=== PATIENT | female | born 1965 | race Caucasian/White ===

== ENCOUNTER 2016-07-27 12:57 | Emergency (ER) | payer BC ==
--- NOTE | 2016-07-27 14:38 | EDM.PDOC ---
ED HISTORY OF PRESENT ILLNESS - General Chief Complaint: Respiratory Problem Stated Complaint: ASTHMA ATTACK Time Seen by Provider: 07/27/16 13:10 Source of Information: Reports: Patient History Limitations: Reports: No limitations - History of Present Illness INITIAL COMMENTS - FREE TEXT/NARRATIVE: History of present illness: [] Patient had 3 days of cold symptoms with sore throat and shortness of breath. Review of systems: As per history of present illness and below otherwise all systems reviewed and negative. Past medical history: As per history of present illness and as reviewed below otherwise noncontributory. Surgical history: As per history of present illness and as reviewed below otherwise noncontributory. Social history: No reported history of drug or alcohol abuse. Family history: As per history of present illness and as reviewed below otherwise noncontributory. Physical exam: General: Well developed, well nourished in NAD HEENT: Atraumatic, normocephalic, pupils reactive, negative for conjunctival pallor or scleral icterus, mucous membranes moist, throat clear, neck supple, nontender, trachea midline. Lungs: Clear to auscultation, breath sounds equal bilaterally, chest nontender. Heart: S1S2, regular, negative for clicks, rubs, or JVD. Abdomen: Soft, nondistended, nontender. Negative for masses or hepatosplenomegaly. Negative for costovertebral tenderness. Pelvis: Stable nontender. Genitourinary: Deferred. Rectal: Deferred. Extremities: Atraumatic, negative for cords or calf pain. Neurovascular unremarkable. Neuro: Awake, alert, oriented. Cranial nerves II through XII unremarkable. Cerebellum unremarkable. Motor and sensory unremarkable throughout. Exam nonfocal. Diagnostics: [] Influenza and strep tests are negative Therapeutics: [] Impression: [] Viral syndrome Plan: [] Motrin Tylenol for pain and fevers followup with primary care as needed Definitive disposition and diagnosis as appropriate pending reevaluation and review of above. - Related Data Allergies/ADRs: Allergies Allergy/AdvReac Type Severity Reaction Status Date / Time No Known Allergies Allergy Verified 07/27/16 13:22 Past Medical History Respiratory History: Reports: Asthma Gastrointestinal History: Reports: GERD Musculoskeletal History: Reports: Arthritis Social & Family History - Family History Family Medical History: Noncontributory - Tobacco Use Smoking Status *Q: Never Smoker - Recreational Drug Use Recreational Drug Use: No ED ROS GENERAL - Review of Systems Review Of Systems: See Below (See history of present illness) ED EXAM, GENERAL - Physical Exam Exam: See Below (The history of present illness) Course - Vital Signs Last Recorded V/S: Last Vital Signs Temp 36.9 C 07/27/16 13:23 Pulse 92 07/27/16 13:23 Resp 18 07/27/16 13:23 BP 153/95 H 07/27/16 13:23 Pulse Ox 97 07/27/16 13:23 - Orders/Labs/Meds Orders: Active Orders 24 hr Category Date Time Status CULTURE STREP A CONFIRMATION [RM] Stat Lab 07/27/16 13:35 Results STREP SCRN A RAPID W CULT CONF [RM] Stat Lab 07/27/16 13:35 Results Departure - Departure Time of Disposition: 14:40 Disposition: Home, Self-Care 01 Condition: good Clinical Impression: Viral syndrome Forms: ED Department Discharge Additional Instructions: The following information is given to patients seen in the emergency department who are being discharged to home. This information is to outline your options for follow-up care. We provide all patients seen in our emergency department with a follow-up referral. The need for follow-up, as well as the timing and circumstances, are variable depending upon the specifics of your emergency department visit. If you don't have a primary care physician on staff, we will provide you with a referral. We always advise you to contact your personal physician following an emergency department visit to inform them of the circumstance of the visit and for follow-up with them and/or the need for any referrals to a consulting specialist. The emergency department will also refer you to a specialist when appropriate. This referral assures that you have the opportunity for follow-up care with a specialist. All of these measure are taken in an effort to provide you with optimal care, which includes your follow-up. Under all circumstances we always encourage you to contact your private physician who remains a resource for coordinating your care. When calling for follow-up care, please make the office aware that this follow-up is from your recent emergency room visit. If for any reason you are refused follow-up, please contact the [facility] Emergency Department at and asked to speak to the emergency department charge nurse. [facility] [address] [place] [phone] - My Orders Last 24 Hours: My Active Orders 07/27/16 13:35 CULTURE STREP A CONFIRMATION [RM] Stat STREP SCRN A RAPID W CULT CONF [RM] Stat - Assessment/Plan Last 24 Hours: My Active Orders 07/27/16 13:35 CULTURE STREP A CONFIRMATION [RM] Stat STREP SCRN A RAPID W CULT CONF [RM] Stat
[2016-07-27 15:10] VITALS: BP 142/81
== END 2016-07-27 15:04 | disposition home or self-care (01) ==
LOC: MW.ED 12:57
DX: B34.9 Viral infection, unspecified (principal)
CPT/HCPCS: 87081; 87804; 87880; 99282; 99283

== ENCOUNTER 2017-07-05 09:41 | Emergency (ER) | payer BC ==
[2017-07-05] MEDS ORDERED: Sodium Chloride 0.9% 1,000 ML IV ONE (10:15)
--- NOTE | 2017-07-05 10:23 | EDM.PDOC ---
ED HPI GENERAL MEDICAL PROBLEM - General Chief Complaint: Respiratory Problem Stated Complaint: CHEST PAIN, HARD TO BREATHE Time Seen by Provider: 07/05/17 10:02 Source of Information: Reports: Patient History Limitations: Reports: No Limitations - History of Present Illness INITIAL COMMENTS - FREE TEXT/NARRATIVE: HISTORY AND PHYSICAL: History of present illness: [Patient comes to the emergency room via private vehicle. complaining of left- sided chest pain. Her symptoms began yesterday and were fairly constant through the day but resolved prior to going to bed last night. Pain resumed 0830 this morning. She describes the pain as being an only her left chest, and as a squeezing sensation in her left chest, which she rates as 4-5/10. No radiation of pain into her neck, jaw, shoulder or down her left arm. Pain is not affected by breathing. Pain does not take her breath away. Has not taken any medications for her symptoms. Follows regularly w/ Dr. Marie. Hx of HTN, prediabetes, and asthma. ] Review of systems: As per history of present illness and below otherwise all systems reviewed and negative. Past medical history: As per history of present illness and as reviewed below otherwise noncontributory. Surgical history: As per history of present illness and as reviewed below otherwise noncontributory. Social history: No reported history of drug or alcohol abuse. Family history: As per history of present illness and as reviewed below otherwise noncontributory. Physical exam: HEENT: Atraumatic, normocephalic. Oral mucous membranes are pink and moist. Neck supple no lymphadenopathy. Lungs: Clear to auscultation, breath sounds equal bilaterally. No wheezing crackles or rales. Heart: S1S2, regular rate and rhythm. Abdomen: Soft, nondistended, nontender. Negative for masses guarding or rebound. Pelvis: Stable nontender. Genitourinary: Deferred. Rectal: Deferred. Extremities: Atraumatic, no cyanosis or edema to feet or lower legs. Neurovascular unremarkable. Neuro: Awake, alert, oriented. Motor and sensory unremarkable throughout. Exam nonfocal. Diagnostics: [Chest x-ray, EKG, CBC, CMP, d-dimer, PT/INR, troponin] Therapeutics: [1 L normal saline, Toradol 30 mg IV] Impression: [L sided chest pain] Plan: [EKG shows sinus rhythm and rate of 81. No acute findings. Labs are WNL. Troponin is negative. CXR is clear. Discussed with patient that her symptoms appear to be noncardiac in nature. She is feeling significantly improved and requests discharge to home. Encouraged her to follow-up with Dr. marie in the next couple of days. Strict return precautions are reviewed. She is in agreement with today's plan.] Definitive disposition and diagnosis as appropriate pending reevaluation and review of above. left chest Pain Score (Numeric/FACES): 4 - Related Data Allergies Allergy/AdvReac Type Severity Reaction Status Date / Time fexofenadine [From Adrienne] Allergy Diaphoresis Verified 07/05/17 09:54 Home Meds: Home Meds Budesonide/Formoterol Fumarate [Symbicort 160-4.5 Mcg Inhaler] 10.2 gm INH DAILY PRN 07/05/17 [History] Hydrochlorothiazide 12.5 mg PO DAILY 07/05/17 [History] Lisinopril 2.5 mg PO DAILY 07/05/17 [History] metroNIDAZOLE [Flagyl] 500 mg PO BID 07/05/17 [History] Past Medical History HEENT History: Reports: None Cardiovascular History: Reports: Hypertension Respiratory History: Reports: Asthma Gastrointestinal History: Reports: GERD Genitourinary History: Reports: None 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 Musculoskeletal History: Reports: Arthritis Neurological History: Reports: None Psychiatric History: Reports: None Endocrine/Metabolic History: Reports: None Hematologic History: Reports: None Immunologic History: Reports: None Oncologic (Cancer) History: Reports: None Dermatologic History: Reports: None - Past Surgical History Head Surgeries/Procedures: Reports: None HEENT Surgical History: Reports: None Cardiovascular Surgical History: Reports: None Respiratory Surgical History: Reports: None GI Surgical History: Reports: None Female Surgical History: Reports: None Endocrine Surgical History: Reports: None Neurological Surgical History: Reports: None Musculoskeletal Surgical History: Reports: None Oncologic Surgical History: Reports: None Dermatological Surgical History: Reports: None Social & Family History - Family History Family Medical History: Noncontributory - Tobacco Use Smoking Status *Q: Never Smoker - Caffeine Use Caffeine Use: Reports: None - Recreational Drug Use Recreational Drug Use: No ED ROS GENERAL - Review of Systems Review Of Systems: ROS reveals no pertinent complaints other than HPI. ED EXAM, GENERAL - Physical Exam Exam: See Below Course - Vital Signs Last Recorded V/S: Last Vital Signs Temp 99.3 F 07/05/17 11:52 Pulse 71 07/05/17 11:52 Resp 18 07/05/17 11:52 BP 160/90 H 07/05/17 11:52 Pulse Ox 100 07/05/17 11:52 - Orders/Labs/Meds Orders: Active Orders 24 hr Category Date Time Status EKG Documentation Completion [RC] STAT Care 07/05/17 10:15 Active Labs: Laboratory Tests 07/05/17 07/05/17 07/05/17 Range/Units 10:00 10:00 10:00 WBC 9.65 (4.0-11.0) K/uL RBC 4.75 (4.30-5.90) M/uL Hgb 12.6 (12.0-16.0) g/dL Hct 37.9 (36.0-46.0) % MCV 79.8 L (80.0-98.0) fL MCH 26.5 L (27.0-32.0) pg MCHC 33.2 (31.0-37.0) g/dL RDW Std Deviation 41.5 (28.0-62.0) fl RDW Coeff of Keren 14 (11.0-15.0) % Plt Count 216 (150-400) K/uL MPV 11.60 (7.40-12.00) fL Neut % (Auto) 72.3 (48.0-80.0) % Lymph % (Auto) 20.1 (16.0-40.0) % [place] % (Auto) 6.4 (0.0-15.0) % Eos % (Auto) 0.9 (0.0-7.0) % Baso % (Auto) 0.3 (0.0-1.5) % Neut # (Auto) 7.0 H (1.4-5.7) K/uL Lymph # (Auto) 1.9 (0.6-2.4) K/uL [place] # (Auto) 0.6 (0.0-0.8) K/uL Eos # (Auto) 0.1 (0.0-0.7) K/uL Baso # (Auto) 0.0 (0.0-0.1) K/uL Nucleated RBC % 0.2 /100WBC Nucleated RBCs # 0 K/uL INR 1.01 D-Dimer, Quantitative 0.35 (0.0-0.52) mg/LFEU Sodium 138 (136-146) mmol/L Potassium 3.8 (3.5-5.1) mmol/L Chloride 105 (98-110) mmol/L Carbon Dioxide 22 (21-31) mmol/L BUN 13 (6.0-23.0) mg/dL Creatinine 0.8 (0.6-1.5) mg/dL Est Cr Clr Drug Dosing 74.86 mL/min Estimated GFR (MDRD) > 60.0 ml/min Glucose 152 H (60-110) mg/dL Calcium 9.4 (8.8-10.8) mg/dL Total Bilirubin 0.4 (0.1-1.5) mg/dL AST 22 (5-40) IU/L ALT 20 (8-54) IU/L Alkaline Phosphatase 53 (40-150) Troponin I < 0.10 (0.0-0.29) NG/ML Total Protein 7.8 (6.0-8.0) g/dL Albumin 4.2 (3.5-5.0) g/dL Globulin 3.6 H (2.0-3.5) g/dL Albumin/Globulin Ratio 1.2 L (1.3-2.8) Meds: Medications Discontinued Medications Generic Name Dose Route Start Last Admin Trade Name Freq PRN Reason Stop Dose Admin Sodium Chloride 1,000 mls @ 999 mls/hr 07/05/17 10:15 07/05/17 10:15 Normal Saline IV 07/05/17 11:15 999 mls/hr .Bolus ONE Administration Ketorolac Tromethamine 30 mg 07/05/17 11:16 07/05/17 11:51 Toradol IVPUSH 07/05/17 11:17 30 mg ONETIME ONE Administration Departure - Departure Time of Disposition: 11:55 Disposition: Home, Self-Care 01 Condition: Good Clinical Impression: Chest pain, non-cardiac - Discharge Information Referrals: Kendall Marie MD [Primary Care Provider] - Forms: ED Department Discharge Additional Instructions: The following information is given to patients seen in the emergency department who are being discharged to home. This information is to outline your options for follow-up care. We provide all patients seen in our emergency department with a follow-up referral. The need for follow-up, as well as the timing and circumstances, are variable depending upon the specifics of your emergency department visit. If you don't have a primary care physician on staff, we will provide you with a referral. We always advise you to contact your personal physician following an emergency department visit to inform them of the circumstance of the visit and for follow-up with them and/or the need for any referrals to a consulting specialist. The emergency department will also refer you to a specialist when appropriate. This referral assures that you have the opportunity for follow-up care with a specialist. All of these measure are taken in an effort to provide you with optimal care, which includes your follow-up. Under all circumstances we always encourage you to contact your private physician who remains a resource for coordinating your care. When calling for follow-up care, please make the office aware that this follow-up is from your recent emergency room visit. If for any reason you are refused follow-up, please contact the [facility] emergency department at and asked to speak to the emergency department charge nurse. [facility] [address] [place] [address] Follow-up with your primary care provider at the clinic listed above in 48-72 hours. Continue regular your medications. Return to ER as needed as discussed. - My Orders Last 24 Hours: My Active Orders 07/05/17 10:15 EKG Documentation Completion [RC] STAT - Assessment/Plan Last 24 Hours: My Active Orders 07/05/17 10:15 EKG Documentation Completion [RC] STAT
[2017-07-05 10:57] LABS: CHLORIDE,CL 105 mmol/L (98-110); SODIUM,NA 138 mmol/L (136-146)
[2017-07-05] MEDS ORDERED: Ketorolac 30 MG/ML SDV IVPUSH ONE (11:16)
--- NOTE | 2017-07-05 11:28 | CR ---
EXAMINATION: Two-view chest (PA and Lateral views). HISTORY: Chest pain FINDINGS: The trachea is midline. The cardiomediastinal silhouette is within normal limits. No pulmonary infilt rates, effusions or pneumothorax. Osseous structures appear unremarkable. IMPRESSION: No acute cardiopulmonary process.
[2017-07-05 11:53] VITALS: BP 160/90
== END 2017-07-05 12:15 | disposition home or self-care (01) ==
LOC: MW.ED 09:41
DX: R07.89 Other chest pain (principal); I10 Essential (primary) hypertension; J45.909 Unspecified asthma, uncomplicated; K21.9 Gastro-esophageal reflux disease without esophagitis; Z79.899 Other long term (current) drug therapy; Z88.8 Allergy status to other drugs, medicaments and biological substances
CPT/HCPCS: 36415; 71046; 80053; 84484; 85025; 85379; 85610; 93005; 96361; 96374; 99285; J1885; J7040; 99283

== ENCOUNTER 2017-09-20 12:06 | Emergency (ER) | payer BC ==
--- NOTE | 2017-09-20 12:54 | CR ---
EXAMINATION: Two-view chest (PA and Lateral views). HISTORY: Shortness of breath. FINDINGS: The trachea is midline. The cardiomediastinal silhouette is within normal limits. No pulmonary infilt rates, effusions or pneumothorax. There is a vague 1.2 cm nodular area projecting over the confines o f the ninth posterior right rib. Osseous structures appear unremarkable. IMPRESSION: 1. No acute cardiopulmonary process. 2. Vague 1.2 cm nodular area within the right lung base. This may represent overlap from the right ni nth rib. Follow-up imaging may be beneficial.
[2017-09-20] MEDS ORDERED: Albuterol/Ipratropium 3.0-0.5 MG/3 ML Neb Soln NEB ONE (13:10)
[2017-09-20] MEDS ORDERED: methylPREDNISolone Sodium Succinate 125 MG/2 ML SDV IM ONE (13:10)
--- NOTE | 2017-09-20 13:11 | EDM.PDOC ---
ED HPI GENERAL MEDICAL PROBLEM - General Chief Complaint: Respiratory Problem Stated Complaint: ASTHMA HARD TO BREATHE Time Seen by Provider: 09/20/17 13:11 Source of Information: Reports: Patient - History of Present Illness INITIAL COMMENTS - FREE TEXT/NARRATIVE: HISTORY AND PHYSICAL: History of present illness: [Patient with asthma exacerbation presents by private vehicle in no acute distress she is able speak in full sentences but does have some chest tightness over the last couple of days since whether is warmed up and [place] [address] she does take her Symbicort and albuterol HFA as needed no fever nausea vomiting chills sweats no chest pain shortness breath headache dizziness palpitation about a urine symptoms she states her chest just feels tight like she is not getting a full breath and indeed on examination this is what he is occurring] Review of systems: As per history of present illness and below otherwise all systems reviewed and negative. Past medical history: As per history of present illness and as reviewed below otherwise noncontributory. Surgical history: As per history of present illness and as reviewed below otherwise noncontributory. Social history: No reported history of drug or alcohol abuse. Family history: As per history of present illness and as reviewed below otherwise noncontributory. Physical exam: HEENT: Atraumatic, normocephalic, pupils reactive, negative for conjunctival pallor or scleral icterus, mucous membranes moist, throat clear, neck supple, nontender, trachea midline. Lungs: Clear to auscultation, breath sounds equal bilaterally, chest nontender. Os DuoNeb and Solu-Medrol Heart: S1S2, regular, negative for clicks, rubs, or JVD. Abdomen: Soft, nondistended, nontender. Negative for masses or hepatosplenomegaly. Negative for costovertebral tenderness. Pelvis: Stable nontender. Genitourinary: Deferred. Rectal: Deferred. Extremities: Atraumatic, negative for cords or calf pain. Neurovascular unremarkable. Neuro: Awake, alert, oriented. Cranial nerves II through XII unremarkable. Cerebellum unremarkable. Motor and sensory unremarkable throughout. Exam nonfocal. Diagnostics: [Chest 2 views ] Therapeutics: [DuoNeb Solu-Medrol 125 mg IM ] DuoNeb one box approximately 40 pack Medrol Dosepak follow-up with primary care as needed or 2 weeks Impression: [ asthma exacerbation ]-improved Definitive disposition and diagnosis as appropriate pending reevaluation and review of above. - Related Data Allergies Allergy/AdvReac Type Severity Reaction Status Date / Time fexofenadine [From Adrienne] Allergy Other Verified 09/20/17 12:53 Home Meds: Home Meds Budesonide/Formoterol Fumarate [Symbicort 160-4.5 Mcg Inhaler] 1 puff INH DAILY PRN 07/05/17 [History] Hydrochlorothiazide 12.5 mg PO DAILY 07/05/17 [History] Albuterol [Proventil HFA] 1 - 2 puff INH Q4H PRN 09/20/17 [History] Lansoprazole 15 mg PO DAILY 09/20/17 [History] Magnesium Oxide [Magnesium] 0.5 tab PO DAILY 09/20/17 [History] Past Medical History HEENT History: Reports: None Cardiovascular History: Reports: Hypertension Respiratory History: Reports: Asthma Gastrointestinal History: Reports: GERD Genitourinary History: Reports: None 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 Musculoskeletal History: Reports: Arthritis Neurological History: Reports: None Psychiatric History: Reports: None Endocrine/Metabolic History: Reports: None Hematologic History: Reports: None Immunologic History: Reports: None Oncologic (Cancer) History: Reports: None Dermatologic History: Reports: None - Past Surgical History Head Surgeries/Procedures: Reports: None HEENT Surgical History: Reports: None Cardiovascular Surgical History: Reports: None Respiratory Surgical History: Reports: None GI Surgical History: Reports: None Female Surgical History: Reports: None Endocrine Surgical History: Reports: None Neurological Surgical History: Reports: None Musculoskeletal Surgical History: Reports: None Oncologic Surgical History: Reports: None Dermatological Surgical History: Reports: None Social & Family History - Family History Family Medical History: Noncontributory - Tobacco Use Smoking Status *Q: Never Smoker Second Hand Smoke Exposure: No - Caffeine Use Caffeine Use: Reports: None - Recreational Drug Use Recreational Drug Use: No ED ROS GENERAL - Review of Systems Review Of Systems: ROS reveals no pertinent complaints other than HPI. ED EXAM, GENERAL - Physical Exam Exam: See Below Course - Vital Signs Last Recorded V/S: Last Vital Signs Temp 98.7 F 09/20/17 12:51 Pulse 82 09/20/17 12:51 Resp 18 09/20/17 12:51 BP 146/74 H 09/20/17 12:51 Pulse Ox 97 09/20/17 12:51 - Orders/Labs/Meds Orders: Active Orders 24 hr Category Date Time Status RT Aerosol Therapy [RC] ASDIRECTED Care 09/20/17 13:10 Active Meds: Medications Discontinued Medications Generic Name Dose Route Start Last Admin Trade Name Ulises PRN Reason Stop Dose Admin Albuterol/Ipratropium 3 ml 09/20/17 13:10 Duoneb 3.0-0.5 Mg/3 Ml NEB 09/20/17 13:11 ONETIME ONE Methylprednisolone Sodium Succinate 125 mg 09/20/17 13:10 Solu-Medrol IM 09/20/17 13:11 ONETIME ONE Departure - Departure Time of Disposition: 13:20 Disposition: Home, Self-Care 01 Condition: Good Clinical Impression: Asthma exacerbation - Discharge Information Referrals: Kendall Marie MD [Primary Care Provider] - Forms: ED Department Discharge Additional Instructions: DuoNeb 4 times a day 7-10 days as needed Continue other current medications as directed Medrol Dosepak as directed Follow-up with primary care in 2 weeks sooner as needed [facility] - [facility] [address] [place] [address] The following information is given to patients seen in the emergency department who are being discharged to home. This information is to outline your options for follow-up care. We provide all patients seen in our emergency department with a follow-up referral. The need for follow-up, as well as the timing and circumstances, are variable depending upon the specifics of your emergency department visit. If you don't have a primary care physician on staff, we will provide you with a referral. We always advise you to contact your personal physician following an emergency department visit to inform them of the circumstance of the visit and for follow-up with them and/or the need for any referrals to a consulting specialist. The emergency department will also refer you to a specialist when appropriate. This referral assures that you have the opportunity for follow-up care with a specialist. All of these measure are taken in an effort to provide you with optimal care, which includes your follow-up. Under all circumstances we always encourage you to contact your private physician who remains a resource for coordinating your care. When calling for follow-up care, please make the office aware that this follow-up is from your recent emergency room visit. If for any reason you are refused follow-up, please contact the [facility] emergency department at and asked to speak to the emergency department charge nurse. - My Orders Last 24 Hours: My Active Orders 09/20/17 13:10 RT Aerosol Therapy [RC] ASDIRECTED - Assessment/Plan Last 24 Hours: My Active Orders 09/20/17 13:10 RT Aerosol Therapy [RC] ASDIRECTED
[2017-09-20 18:21] VITALS: BP 132/79
== END 2017-09-20 13:56 | disposition home or self-care (01) ==
LOC: MW.ED 12:06
DX: J45.901 Unspecified asthma with (acute) exacerbation (principal); I10 Essential (primary) hypertension; K21.9 Gastro-esophageal reflux disease without esophagitis; Z88.8 Allergy status to other drugs, medicaments and biological substances; Z79.899 Other long term (current) drug therapy
CPT/HCPCS: 71046; 96372; 99284; J2930; 99283

== ENCOUNTER 2017-09-20 23:45 | Emergency (ER) | payer BC ==
--- NOTE | 2017-09-20 23:57 | EDM.PDOC ---
ED HPI GENERAL MEDICAL PROBLEM - General Chief Complaint: Chest Pain Stated Complaint: ASTHMA Time Seen by Provider: 09/20/17 23:53 - History of Present Illness INITIAL COMMENTS - FREE TEXT/NARRATIVE: HISTORY AND PHYSICAL: History of present illness: Patient 52-year-old female history of asthma who was seen recently for asthmatic exacerbation who presents with a concern of anxiety chest pain and palpitations she was seen for similar in June of this year and workup was unremarkable. This is vaguely described asassociated nausea vomiting diaphoresis. Review of systems: As per history of present illness and below otherwise all systems reviewed and negative. Past medical history: As per history of present illness and as reviewed below otherwise noncontributory. Surgical history: As per history of present illness and as reviewed below otherwise noncontributory. Social history: No reported history of drug or alcohol abuse. Family history: As per history of present illness and as reviewed below otherwise noncontributory. Physical exam: HEENT: Atraumatic, normocephalic, pupils reactive, negative for conjunctival pallor or scleral icterus, mucous membranes moist, throat clear, neck supple, nontender, trachea midline. Lungs: Clear to auscultation, breath sounds equal bilaterally, chest nontender. Heart: S1S2, regular, negative for clicks, rubs, or JVD. Abdomen: Soft, nondistended, nontender. Negative for masses or hepatosplenomegaly. Negative for costovertebral tenderness. Pelvis: Stable nontender. Genitourinary: Deferred. Rectal: Deferred. Extremities: Atraumatic, negative for cords or calf pain. Neurovascular unremarkable. Neuro: Awake, alert, anxious, oriented. Cranial nerves II through XII unremarkable. Cerebellum unremarkable. Motor and sensory unremarkable throughout. Exam nonfocal. Diagnostics: CBC CMP troponin PT/INR chest x-ray EKG Therapeutics: None Impression: #1 atypical chest pain #2 history of asthma #3 anxiety Definitive disposition and diagnosis as appropriate pending reevaluation and review of above. - Related Data Allergies Allergy/AdvReac Type Severity Reaction Status Date / Time fexofenadine [From Adrienne] Allergy Other Verified 09/20/17 12:53 Home Meds: Home Meds Budesonide/Formoterol Fumarate [Symbicort 160-4.5 Mcg Inhaler] 1 puff INH DAILY PRN 07/05/17 [History] Hydrochlorothiazide 12.5 mg PO DAILY 07/05/17 [History] Albuterol [Proventil HFA] 1 - 2 puff INH Q4H PRN 09/20/17 [History] Lansoprazole 15 mg PO DAILY 09/20/17 [History] Magnesium Oxide [Magnesium] 0.5 tab PO DAILY 09/20/17 [History] Past Medical History HEENT History: Reports: None Cardiovascular History: Reports: Hypertension Respiratory History: Reports: Asthma Gastrointestinal History: Reports: GERD Genitourinary History: Reports: None 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 Musculoskeletal History: Reports: Arthritis Neurological History: Reports: None Psychiatric History: Reports: None Endocrine/Metabolic History: Reports: None Hematologic History: Reports: None Immunologic History: Reports: None Oncologic (Cancer) History: Reports: None Dermatologic History: Reports: None - Past Surgical History Head Surgeries/Procedures: Reports: None HEENT Surgical History: Reports: None Cardiovascular Surgical History: Reports: None Respiratory Surgical History: Reports: None GI Surgical History: Reports: None Female Surgical History: Reports: None Endocrine Surgical History: Reports: None Neurological Surgical History: Reports: None Musculoskeletal Surgical History: Reports: None Oncologic Surgical History: Reports: None Dermatological Surgical History: Reports: None Social & Family History - Family History Family Medical History: Noncontributory - Tobacco Use Smoking Status *Q: Never Smoker Second Hand Smoke Exposure: No - Caffeine Use Caffeine Use: Reports: None - Recreational Drug Use Recreational Drug Use: No ED ROS GENERAL - Review of Systems Review Of Systems: ROS reveals no pertinent complaints other than HPI. ED EXAM, GENERAL - Physical Exam Exam: See Below (See dictation) Course - Orders/Labs/Meds Orders: Active Orders 24 hr Category Date Time Status EKG Documentation Completion [RC] STAT Care 09/20/17 23:59 Active Chest 1V Frontal [CR] Stat Exams 09/20/17 23:59 Taken COMPREHENSIVE METABOLIC PN,CMP [CHEM] Stat Lab 09/20/17 00:15 Received TROPONIN I [CHEM] Stat Lab 09/20/17 00:15 Received Labs: Laboratory Tests 09/20/17 09/20/17 Range/Units 00:15 00:15 WBC 12.20 H (4.0-11.0) K/uL RBC 4.73 (4.30-5.90) M/uL Hgb 12.1 (12.0-16.0) g/dL Hct 36.8 (36.0-46.0) % MCV 77.8 L (80.0-98.0) fL MCH 25.6 L (27.0-32.0) pg MCHC 32.9 (31.0-37.0) g/dL RDW Std Deviation 41.7 (28.0-62.0) fl RDW Coeff of Keren 15 (11.0-15.0) % Plt Count 228 (150-400) K/uL MPV 11.40 (7.40-12.00) fL Neut % (Auto) 94.3 H (48.0-80.0) % Lymph % (Auto) 5.0 L (16.0-40.0) % [place] % (Auto) 0.6 (0.0-15.0) % Eos % (Auto) 0.0 (0.0-7.0) % Baso % (Auto) 0.1 (0.0-1.5) % Neut # (Auto) 11.5 H (1.4-5.7) K/uL Lymph # (Auto) 0.6 (0.6-2.4) K/uL [place] # (Auto) 0.1 (0.0-0.8) K/uL Eos # (Auto) 0.0 (0.0-0.7) K/uL Baso # (Auto) 0.0 (0.0-0.1) K/uL Nucleated RBC % 0.0 /100WBC Nucleated RBCs # 0 K/uL INR 1.03 Departure - Departure Time of Disposition: 00:57 Disposition: Home, Self-Care 01 Condition: Good Clinical Impression: Atypical chest pain, Asthma - Discharge Information Forms: ED Department Discharge Additional Instructions: The following information is given to patients seen in the emergency department who are being discharged to home. This information is to outline your options for follow-up care. We provide all patients seen in our emergency department with a follow-up referral. The need for follow-up, as well as the timing and circumstances, are variable depending upon the specifics of your emergency department visit. If you don't have a primary care physician on staff, we will provide you with a referral. We always advise you to contact your personal physician following an emergency department visit to inform them of the circumstance of the visit and for follow-up with them and/or the need for any referrals to a consulting specialist. The emergency department will also refer you to a specialist when appropriate. This referral assures that you have the opportunity for followup care with a specialist. All of these measure are taken in an effort to provide you with optimal care, which includes your followup. Under all circumstances we always encourage you to contact your private physician who remains a resource for coordinating your care. When calling for followup care, please make the office aware that this follow-up is from your recent emergency room visit. If for any reason you are refused follow-up, please contact the [facility] emergency department at and asked to speak to the emergency department charge nurse. Continue current medications follow primary medical doctor return as needed as discussed - My Orders Last 24 Hours: My Active Orders 09/20/17 00:15 COMPREHENSIVE METABOLIC PN,CMP [CHEM] Stat TROPONIN I [CHEM] Stat 09/20/17 23:59 EKG Documentation Completion [RC] STAT Chest 1V Frontal [CR] Stat - Assessment/Plan Last 24 Hours: My Active Orders 09/20/17 00:15 COMPREHENSIVE METABOLIC PN,CMP [CHEM] Stat TROPONIN I [CHEM] Stat 09/20/17 23:59 EKG Documentation Completion [RC] STAT Chest 1V Frontal [CR] Stat
[2017-09-21 01:10] LABS: CHLORIDE,CL 101 mmol/L (98-107); SODIUM,NA 137 mmol/L (136-145)
[2017-09-21 01:49] VITALS: BP 130/71
--- NOTE | 2017-09-21 13:21 | CR ---
EXAM DATE: 09/20/17 PATIENT'S AGE: 52 Patient: SHARON DAWSON Facility: [place], [place] Site . Site : 1965 Study: XRay Chest [id number] 12:18:25 AM Ordering Physician: Doctor Soto Final Report: INDICATION: SOB, CP TECHNIQUE: Chest 1 view. COMPARISON: 09/20/17 FINDINGS: Cardiovascular and mediastinum: Heart size and vasculature are normal in caliber and appearance. Mediastinum is within normal limits. Lungs and pleural space: Lungs are clear. No sign of infiltrate or mass. No sign of pleural effusion. No pneumothorax. Bones and soft tissues: No significant findings. IMPRESSION: Unremarkable chest. Dictated by: Sushant Thompson MD @ 09/21/2017 00:21:59 (Electronic Signature) Report Signed by Proxy. YISEL
== END 2017-09-21 01:35 | disposition home or self-care (01) ==
LOC: MW.ED 23:45
DX: R07.89 Other chest pain (principal); J45.909 Unspecified asthma, uncomplicated; I10 Essential (primary) hypertension; K21.9 Gastro-esophageal reflux disease without esophagitis; F41.9 Anxiety disorder, unspecified; Z88.8 Allergy status to other drugs, medicaments and biological substances; Z79.899 Other long term (current) drug therapy
CPT/HCPCS: 36415; 71045; 71045-26; 80053; 84484; 85025; 85610; 93005; 99285-25

== ENCOUNTER 2017-09-27 13:24 | Emergency (ER) | payer BC ==
--- NOTE | 2017-09-27 13:45 | EDM.PDOC ---
ED HPI GENERAL MEDICAL PROBLEM - General Chief Complaint: Respiratory Problem Stated Complaint: ASTHEMA Time Seen by Provider: 09/27/17 13:27 Source of Information: Reports: Patient History Limitations: Reports: No Limitations - History of Present Illness INITIAL COMMENTS - FREE TEXT/NARRATIVE: HISTORY AND PHYSICAL: History of present illness: Patient is a 52-year-old female who presents to the emergency room today with complaints of dyspnea and anxiety. She states over the past week she has had asthma exacerbation and increase in her anxiety. She has been seen twice in the emergency room and once at her primary care provider for these symptoms. She has been using her prescribed inhaler and rescue nebulizer treatments but still feels anxious and like she is unable to get a full breath. She denies any fever, chills, chest pain, abdominal pain, nausea, vomiting, diarrhea or constipation. Has a follow-up appointment tomorrow with Dr. Greenberg Review of systems: As per history of present illness and below otherwise all systems reviewed and negative. Past medical history: As per history of present illness and as reviewed below otherwise noncontributory. Surgical history: As per history of present illness and as reviewed below otherwise noncontributory. Social history: No reported history of drug or alcohol abuse. Family history: As per history of present illness and as reviewed below otherwise noncontributory. Physical exam: General: Well-developed and well-nourished 52-year-old female. Alert and oriented. Nontoxic appearing HEENT: Atraumatic, normocephalic, pupils equal and reactive bilaterally, negative for conjunctival pallor or scleral icterus, mucous membranes moist, throat clear, neck supple, nontender, trachea midline. No drooling or trismus noted. No meningeal signs Lungs: Clear to auscultation, breath sounds equal bilaterally, chest nontender. Heart: S1S2, regular rate and rhythm without overt murmur Abdomen: Soft, nondistended, nontender. Negative for masses or hepatosplenomegaly. Negative for costovertebral tenderness. Pelvis: Stable nontender. Genitourinary: Deferred. Rectal: Deferred. Skin: Intact, warm, dry. No lesions or rashes noted. Extremities: Atraumatic, negative for cords or calf pain. Neurovascular unremarkable. Neuro: Awake, alert, oriented. Cranial nerves II through XII unremarkable. Cerebellum unremarkable. Motor and sensory unremarkable throughout. Exam nonfocal. Notes: 09/20/2017: Patient was evaluated twice on this day for chest pain, anxiety and asthma exacerbation. Full workup was done and results were unremarkable. She was encouraged to follow-up with her primary care provider. 09/23/2017: CTA shows a 1.3 cm round soft tissue nodule in the right middle lobe , suggesting a follow-up in 3 months with primary care. No evidence of pulmonary embolism, pleural effusion or pneumonia. Today's physical examination was unremarkable. She did just have a full workup along with x-ray, EKG and CTA. He states she felt better after she had a Solu- Medrol injection on 09/20/2017 and is inquiring about oral steroids but is concerned as this could raise her blood sugars. Throughout our discussion about repeating labs, x-rays and EKG she declines at this time. I did offer to give her some Solu-Medrol while here she states she would like to try "low dose" of oral prednisone. Patient does seem anxious while discussing therapeutics. We talked about Singulair, Z-Hao and prednisone. She states that Singulair gives her heartburn and declines any allergy type medication. We will do a Z-Hao and low dose prednisone. He has a follow-up appointment with tomorrow will further discuss management. Diagnostics: None Therapeutics: None Impression: Asthma exacerbation Anxiety Plan: 1. Please take the medication as prescribed. 2. Continue to monitor blood sugars. 3. You may continue to use your nebulizer, Flonase and inhalers as directed. 4. Follow-up with your primary care provider in the next 1-2 days. Return to the ED as needed and as discussed Definitive disposition and diagnosis as appropriate pending reevaluation and review of above. Duration: Day(s): Location: Reports: Chest Mid-Sternal Chest Pain Score (Numeric/FACES): 2 - Related Data Allergies Allergy/AdvReac Type Severity Reaction Status Date / Time codeine Allergy Other Verified 09/27/17 13:33 fexofenadine [From Adrienne] Allergy Other Verified 09/20/17 12:53 methylprednisolone Allergy Dizziness Verified 09/27/17 13:33 [From Medrol] Home Meds: Home Meds Budesonide/Formoterol Fumarate [Symbicort 160-4.5 Mcg Inhaler] 1 puff INH DAILY PRN 07/05/17 [History] Hydrochlorothiazide 12.5 mg PO DAILY 07/05/17 [History] Albuterol [Proventil HFA] 1 - 2 puff INH Q4H PRN 09/20/17 [History] Lansoprazole 15 mg PO DAILY 09/20/17 [History] Magnesium Oxide [Magnesium] 0.5 tab PO DAILY 09/20/17 [History] Past Medical History HEENT History: Reports: None Cardiovascular History: Reports: Hypertension Respiratory History: Reports: Asthma Gastrointestinal History: Reports: GERD Genitourinary History: Reports: None 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 Musculoskeletal History: Reports: Arthritis Neurological History: Reports: None Psychiatric History: Reports: None Endocrine/Metabolic History: Reports: None Hematologic History: Reports: None Immunologic History: Reports: None Oncologic (Cancer) History: Reports: None Dermatologic History: Reports: None - Past Surgical History Head Surgeries/Procedures: Reports: None HEENT Surgical History: Reports: None Cardiovascular Surgical History: Reports: None Respiratory Surgical History: Reports: None GI Surgical History: Reports: None Female Surgical History: Reports: None Endocrine Surgical History: Reports: None Neurological Surgical History: Reports: None Musculoskeletal Surgical History: Reports: None Oncologic Surgical History: Reports: None Dermatological Surgical History: Reports: None Social & Family History - Family History Family Medical History: Noncontributory - Tobacco Use Smoking Status *Q: Never Smoker Second Hand Smoke Exposure: No - Caffeine Use Caffeine Use: Reports: None - Recreational Drug Use Recreational Drug Use: No ED ROS GENERAL - Review of Systems Review Of Systems: ROS reveals no pertinent complaints other than HPI. ED EXAM, GENERAL - Physical Exam Exam: See Below (See dictation) Course - Vital Signs Last Recorded V/S: Last Vital Signs Temp 97.0 F 09/27/17 13:30 Pulse 88 09/27/17 13:30 Resp 18 09/27/17 13:30 BP 151/91 H 09/27/17 13:30 Pulse Ox 97 09/27/17 13:30 Departure - Departure Time of Disposition: 14:10 Disposition: Home, Self-Care 01 Clinical Impression: Asthma Qualifiers: Asthma severity: mild Asthma persistence: persistent Asthma complication type: uncomplicated Qualified Code(s): J45.30 - Mild persistent asthma, uncomplicated - Discharge Information Instructions: Asthma, Adult, [id number] Referrals: Kendall Marie MD [Primary Care Provider] - Forms: ED Department Discharge Additional Instructions: The following information is given to patients seen in the emergency department who are being discharged to home. This information is to outline your options for follow-up care. We provide all patients seen in our emergency department with a follow-up referral. The need for follow-up, as well as the timing and circumstances, are variable depending upon the specifics of your emergency department visit. If you don't have a primary care physician on staff, we will provide you with a referral. We always advise you to contact your personal physician following an emergency department visit to inform them of the circumstance of the visit and for follow-up with them and/or the need for any referrals to a consulting specialist. The emergency department will also refer you to a specialist when appropriate. This referral assures that you have the opportunity for follow-up care with a specialist. All of these measure are taken in an effort to provide you with optimal care, which includes your follow-up. Under all circumstances we always encourage you to contact your private physician who remains a resource for coordinating your care. When calling for follow-up care, please make the office aware that this follow-up is from your recent emergency room visit. If for any reason you are refused follow-up, please contact the [facility] Emergency Department at and asked to speak to the emergency department charge nurse. [facility] Primary Care [address] [place] [phone] 1. Please take the medication as prescribed. 2. Continue to monitor blood sugars. 3. You may continue to use your nebulizer, Flonase and inhalers as directed. 4. Follow-up with your primary care provider in the next 1-2 days. Return to the ED as needed and as discussed
[2017-09-27 14:45] VITALS: BP 128/77
== END 2017-09-27 14:42 | disposition home or self-care (01) ==
LOC: MW.ED 13:24
DX: J45.30 Mild persistent asthma, uncomplicated (principal); F41.9 Anxiety disorder, unspecified; I10 Essential (primary) hypertension; Z88.5 Allergy status to narcotic agent; Z88.8 Allergy status to other drugs, medicaments and biological substances; Z79.899 Other long term (current) drug therapy
CPT/HCPCS: 99284

== ENCOUNTER 2017-09-28 14:58 | Emergency (ER) | payer BC ==
--- NOTE | 2017-09-28 15:28 | EDM.PDOC ---
ED HPI GENERAL MEDICAL PROBLEM - General Chief Complaint: Respiratory Problem Stated Complaint: ASTHMA ISSUES Time Seen by Provider: 09/28/17 15:01 Source of Information: Reports: Patient History Limitations: Reports: Language Barrier - History of Present Illness INITIAL COMMENTS - FREE TEXT/NARRATIVE: History of present illness: []Patient has a history of asthma and comes in by ambulance complaining of not being able to breathe while she was doing a breathing treatment at home. She was seen here yesterday with a negative workup and and treated with a steroid burst and had a follow-up appointment with Dr. Marie this morning. Patient states that she can't sleep due to the steroids and that she feels very dry. She has sinus congestion but no fevers, vomiting, cough or chest pain. Review of systems: As per history of present illness and below otherwise all systems reviewed and negative. Past medical history: As per history of present illness and as reviewed below otherwise noncontributory. Surgical history: As per history of present illness and as reviewed below otherwise noncontributory. Social history: No reported history of drug or alcohol abuse. Family history: As per history of present illness and as reviewed below otherwise noncontributory. Physical exam: General: Well developed, well nourished in NAD HEENT: Atraumatic, normocephalic, pupils reactive, negative for conjunctival pallor or scleral icterus, mucous membranes moist, throat clear, neck supple, nontender, trachea midline.No sinus tenderness to palpation no stridor Lungs: Clear to auscultation, breath sounds equal bilaterally, chest nontender. No wheezing, rhonchi or accessory muscle use Heart: S1S2, regular, negative for clicks, rubs, or JVD. Abdomen: Soft, nondistended, nontender. Negative for masses or hepatosplenomegaly. Negative for costovertebral tenderness. Pelvis: Stable nontender. Genitourinary: Deferred. Rectal: Deferred. Extremities: Atraumatic, negative for cords or calf pain. Neurovascular unremarkable. Neuro: Awake, alert, oriented. Cranial nerves II through XII unremarkable. Cerebellum unremarkable. Motor and sensory unremarkable throughout. Exam nonfocal. Diagnostics: []None Therapeutics: []None Impression: []Sinus congestion Plan: []Increase fluids [id number] allergy medicines and/or decongestants. Definitive disposition and diagnosis as appropriate pending reevaluation and review of above. - Related Data Allergies Allergy/AdvReac Type Severity Reaction Status Date / Time codeine Allergy Other Verified 09/28/17 15:03 fexofenadine [From Adrienne] Allergy Other Verified 09/28/17 15:03 methylprednisolone Allergy Dizziness Verified 09/28/17 15:03 [From Medrol] Home Meds: Home Meds Budesonide/Formoterol Fumarate [Symbicort 160-4.5 Mcg Inhaler] 1 puff INH DAILY PRN 07/05/17 [History] Hydrochlorothiazide 12.5 mg PO DAILY 07/05/17 [History] Albuterol [Proventil HFA] 1 - 2 puff INH Q4H PRN 09/20/17 [History] Lansoprazole 15 mg PO DAILY 09/20/17 [History] Magnesium Oxide [Magnesium] 0.5 tab PO DAILY 09/20/17 [History] Prednisolone, Micronized [Prednisolone] 5 mg PO BID 09/28/17 [History] Past Medical History HEENT History: Reports: None Cardiovascular History: Reports: Hypertension Respiratory History: Reports: Asthma Gastrointestinal History: Reports: GERD Genitourinary History: Reports: None 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 Musculoskeletal History: Reports: Arthritis Neurological History: Reports: None Psychiatric History: Reports: None Endocrine/Metabolic History: Reports: None Hematologic History: Reports: None Immunologic History: Reports: None Oncologic (Cancer) History: Reports: None Dermatologic History: Reports: None - Infectious Disease History Infectious Disease History: Reports: Chicken Pox, Mumps - Past Surgical History Head Surgeries/Procedures: Reports: None HEENT Surgical History: Reports: None Cardiovascular Surgical History: Reports: None Respiratory Surgical History: Reports: None GI Surgical History: Reports: None Female Surgical History: Reports: None Endocrine Surgical History: Reports: None Neurological Surgical History: Reports: None Musculoskeletal Surgical History: Reports: None Oncologic Surgical History: Reports: None Dermatological Surgical History: Reports: None Social & Family History - Family History Family Medical History: Noncontributory - Tobacco Use Smoking Status *Q: Never Smoker Second Hand Smoke Exposure: No - Caffeine Use Caffeine Use: Reports: None - Recreational Drug Use Recreational Drug Use: No ED ROS GENERAL - Review of Systems Review Of Systems: See Below (See history of present illness) ED EXAM, GENERAL - Physical Exam Exam: See Below (See history of present illness) Course - Vital Signs Last Recorded V/S: Last Vital Signs Temp 98.7 F 09/28/17 15:03 Pulse 95 09/28/17 15:03 Resp 18 09/28/17 15:03 BP 144/87 H 09/28/17 15:03 Pulse Ox 100 09/28/17 15:03 Departure - Departure Time of Disposition: 15:23 Disposition: Home, Self-Care 01 Condition: Good Clinical Impression: Sinus congestion - Discharge Information Referrals: Kendall Marie MD [Primary Care Provider] - Additional Instructions: The following information is given to patients seen in the emergency department who are being discharged to home. This information is to outline your options for follow-up care. We provide all patients seen in our emergency department with a follow-up referral. The need for follow-up, as well as the timing and circumstances, are variable depending upon the specifics of your emergency department visit. If you don't have a primary care physician on staff, we will provide you with a referral. We always advise you to contact your personal physician following an emergency department visit to inform them of the circumstance of the visit and for follow-up with them and/or the need for any referrals to a consulting specialist. The emergency department will also refer you to a specialist when appropriate. This referral assures that you have the opportunity for follow-up care with a specialist. All of these measure are taken in an effort to provide you with optimal care, which includes your follow-up. Under all circumstances we always encourage you to contact your private physician who remains a resource for coordinating your care. When calling for follow-up care, please make the office aware that this follow-up is from your recent emergency room visit. If for any reason you are refused follow-up, please contact the [facility] Emergency Department at and asked to speak to the emergency department charge nurse. Continue current medications, increase fluids and follow-up with primary care.
[2017-09-28 15:50] VITALS: BP 140/89
== END 2017-09-28 15:46 | disposition home or self-care (01) ==
LOC: MW.ED 14:58
DX: R09.81 Nasal congestion (principal); I10 Essential (primary) hypertension; J45.909 Unspecified asthma, uncomplicated; K21.9 Gastro-esophageal reflux disease without esophagitis; Z88.5 Allergy status to narcotic agent; Z88.8 Allergy status to other drugs, medicaments and biological substances; Z79.899 Other long term (current) drug therapy
CPT/HCPCS: 99282; 99284

== ENCOUNTER 2017-10-01 10:41 | Emergency (ER) | payer BC ==
[2017-10-01 10:52] VITALS: BP 196/96
[2017-10-01] MEDS ORDERED: Sodium Chloride 0.9% 1,000 ML IV ONE (10:58)
--- NOTE | 2017-10-01 11:00 | EDM.PDOC ---
ED HPI GENERAL MEDICAL PROBLEM - General Chief Complaint: General Stated Complaint: WEAK/DIZZY/TIRED Time Seen by Provider: 10/01/17 10:57 Source of Information: Reports: Patient History Limitations: Reports: No Limitations - History of Present Illness INITIAL COMMENTS - FREE TEXT/NARRATIVE: HISTORY AND PHYSICAL: History of present illness: Patient is a 52-year-old female who presents to the emergency room today with complaints of weakness, fatigue, shortness of breath and anxiety. States she took her Hydroxyzine last night; and felt like she "didn't sleep at all... I feel like I just can't wake up". Reports she woke up last night with shortness of breath and brief chest pain that resolved "somewhat" after taking her inhaler. She has been seen multiple times in the ER over the past month and several times in the clinic as well by Dr. Marie and Dr. Greenberg, for these similar complaints. She has had full workups which included lab work, x-ray and a CTA of her chest. Patient has a history of asthma and takes multiple inhalers (scheduled, PRN). She states that she feels like she isn't getting enough of her inhaler and feels like she needs more to help her better control her asthma exacerbations. States "everything this they want to try I can't take" as she reports a multitude of medications interact with her Type 2 DM or upset her stomach. Denies any fever, chills, abdominal pain, nausea, vomiting, diarrhea, constipation or dysuria. Review of systems: As per history of present illness and below otherwise all systems reviewed and negative. Past medical history: As per history of present illness and as reviewed below otherwise noncontributory. Surgical history: As per history of present illness and as reviewed below otherwise noncontributory. Social history: No reported history of drug or alcohol abuse. Family history: As per history of present illness and as reviewed below otherwise noncontributory. Physical exam: General: Well-developed and well-nourished 52-year-old female. Alert and oriented. Nontoxic appearing and in no acute distress. HEENT: Atraumatic, normocephalic, pupils equal and reactive bilaterally, negative for conjunctival pallor or scleral icterus, mucous membranes moist, throat clear, neck supple, nontender, trachea midline. No drooling or trismus noted. No meningeal signs Lungs: Clear to auscultation, breath sounds equal bilaterally, chest nontender. Heart: S1S2, regular rate and rhythm without overt murmur Abdomen: Soft, nondistended, nontender. Negative for masses or hepatosplenomegaly. Negative for costovertebral tenderness. Pelvis: Stable nontender. Genitourinary: Deferred. Rectal: Deferred. Skin: Intact, warm, dry. No lesions or rashes noted. Extremities: Atraumatic, negative for cords or calf pain. Neurovascular unremarkable. Neuro: Awake, alert, oriented. Cranial nerves II through XII unremarkable. Cerebellum unremarkable. Motor and sensory unremarkable throughout. Exam nonfocal. Notes: Patient's physical examination is normal. We will do a chest pain workup at this time. Diagnostics: CBC, CMP, EKG, troponin Therapeutics: Normal Saline Impression: Hypokalemia Anxiety about health Plan: 1. Please continue to see your primary care provider for your multitude of complaints about her respiratory and anxiety status. These should be managed in a primary care setting for complete care. 2. Continue to take all your prescribed medications as directed. Increase foods that are high in potassium in your diet (Spinach, avocado, banana). 3. Return to the ED as needed and as discussed. Definitive disposition and diagnosis as appropriate pending reevaluation and review of above. Duration: Week(s): Location: Reports: Chest - Related Data Allergies Allergy/AdvReac Type Severity Reaction Status Date / Time codeine Allergy Other Verified 10/01/17 10:48 fexofenadine [From Adrienne] Allergy Other Verified 10/01/17 10:48 methylprednisolone Allergy Dizziness Verified 10/01/17 10:48 [From Medrol] Home Meds: Home Meds Budesonide/Formoterol Fumarate [Symbicort 160-4.5 Mcg Inhaler] 1 puff INH DAILY PRN 07/05/17 [History] Hydrochlorothiazide 12.5 mg PO DAILY 07/05/17 [History] Albuterol [Proventil HFA] 1 - 2 puff INH Q4H PRN 09/20/17 [History] Lansoprazole 15 mg PO DAILY 09/20/17 [History] Magnesium Oxide [Magnesium] 0.5 tab PO DAILY 09/20/17 [History] Prednisolone, Micronized [Prednisolone] 5 mg PO BID 09/28/17 [History] hydrOXYzine HCl [hydrOXYzine] 25 mg PO Q4HR 10/01/17 [History] Past Medical History HEENT History: Reports: None Cardiovascular History: Reports: Hypertension Respiratory History: Reports: Asthma Gastrointestinal History: Reports: GERD Genitourinary History: Reports: None CONSTRUCTION SITE CROSSING GUARD History: Reports: None Musculoskeletal History: Reports: Arthritis Neurological History: Reports: None Psychiatric History: Reports: None Endocrine/Metabolic History: Reports: None Hematologic History: Reports: None Immunologic History: Reports: None Oncologic (Cancer) History: Reports: None Dermatologic History: Reports: None - Infectious Disease History Infectious Disease History: Reports: Chicken Pox, Mumps - Past Surgical History Head Surgeries/Procedures: Reports: None HEENT Surgical History: Reports: None Cardiovascular Surgical History: Reports: None Respiratory Surgical History: Reports: None GI Surgical History: Reports: None Female Surgical History: Reports: None Endocrine Surgical History: Reports: None Neurological Surgical History: Reports: None Musculoskeletal Surgical History: Reports: None Oncologic Surgical History: Reports: None Dermatological Surgical History: Reports: None Social & Family History - Family History Family Medical History: Noncontributory - Tobacco Use Smoking Status *Q: Never Smoker Second Hand Smoke Exposure: No - Caffeine Use Caffeine Use: Reports: None - Recreational Drug Use Recreational Drug Use: No ED ROS GENERAL - Review of Systems Review Of Systems: ROS reveals no pertinent complaints other than HPI. ED EXAM, GENERAL - Physical Exam Exam: See Below (See dictation) Course - Vital Signs Last Recorded V/S: Last Vital Signs Temp 96.5 F 10/01/17 10:49 Pulse 87 10/01/17 10:49 Resp 18 10/01/17 10:49 BP 196/96 H 10/01/17 10:49 Pulse Ox 99 10/01/17 10:49 - Orders/Labs/Meds Orders: Active Orders 24 hr Category Date Time Status EKG Documentation Completion [RC] STAT Care 10/01/17 10:58 Active Orthostatic Vital Signs [RC] ASDIRECTED Care 10/01/17 10:58 Active Labs: Laboratory Tests 10/01/17 10/01/17 Range/Units 11:15 11:15 WBC 10.50 (4.0-11.0) K/uL RBC 4.85 (4.30-5.90) M/uL Hgb 12.3 (12.0-16.0) g/dL Hct 37.9 (36.0-46.0) % MCV 78.1 L (80.0-98.0) fL MCH 25.4 L (27.0-32.0) pg MCHC 32.5 (31.0-37.0) g/dL RDW Std Deviation 43.4 (28.0-62.0) fl RDW Coeff of Keren 15 (11.0-15.0) % Plt Count 211 (150-400) K/uL MPV 11.60 (7.40-12.00) fL Neut % (Auto) 74.1 (48.0-80.0) % Lymph % (Auto) 18.5 (16.0-40.0) % [place] % (Auto) 6.7 (0.0-15.0) % Eos % (Auto) 0.2 (0.0-7.0) % Baso % (Auto) 0.5 (0.0-1.5) % Neut # (Auto) 7.8 H (1.4-5.7) K/uL Lymph # (Auto) 1.9 (0.6-2.4) K/uL [place] # (Auto) 0.7 (0.0-0.8) K/uL Eos # (Auto) 0.0 (0.0-0.7) K/uL Baso # (Auto) 0.1 (0.0-0.1) K/uL Nucleated RBC % 0.0 /100WBC Nucleated RBCs # 0 K/uL Sodium 137 (136-145) mmol/L Potassium 3.2 L (3.5-5.1) mmol/L Chloride 103 (98-107) mmol/L Carbon Dioxide 23.4 (21.0-32.0) mmol/L BUN 11 (7.0-18.0) mg/dL Creatinine 0.9 (0.6-1.0) mg/dL Est Cr Clr Drug Dosing 66.54 mL/min Estimated GFR (MDRD) > 60.0 ml/min Glucose 142 H (74-106) mg/dL Calcium 9.2 (8.5-10.1) mg/dL Total Bilirubin 0.3 (0.2-1.0) mg/dL AST 25 (15-37) IU/L ALT 28 (14-63) IU/L Alkaline Phosphatase 51 (46-116) U/L Troponin I < 0.050 (0.000-0.056) ng/mL Total Protein 7.9 (6.4-8.2) g/dL Albumin 3.7 (3.4-5.0) g/dL Globulin 4.2 H (2.0-3.5) g/dL Albumin/Globulin Ratio 0.9 L (1.3-2.8) Meds: Medications Discontinued Medications Generic Name Dose Route Start Last Admin Trade Name Freq PRN Reason Stop Dose Admin Sodium Chloride 1,000 mls @ 999 mls/hr 10/01/17 10:58 10/01/17 11:15 Normal Saline IV 10/01/17 11:58 999 mls/hr STAT ONE Administration Departure - Departure Time of Disposition: 12:09 Disposition: Home, Self-Care 01 Clinical Impression: Anxiety about health, Hypokalemia - Discharge Information Referrals: Kendall Marie MD [Primary Care Provider] - Forms: ED Department Discharge Additional Instructions: The following information is given to patients seen in the emergency department who are being discharged to home. This information is to outline your options for follow-up care. We provide all patients seen in our emergency department with a follow-up referral. The need for follow-up, as well as the timing and circumstances, are variable depending upon the specifics of your emergency department visit. If you don't have a primary care physician on staff, we will provide you with a referral. We always advise you to contact your personal physician following an emergency department visit to inform them of the circumstance of the visit and for follow-up with them and/or the need for any referrals to a consulting specialist. The emergency department will also refer you to a specialist when appropriate. This referral assures that you have the opportunity for follow-up care with a specialist. All of these measure are taken in an effort to provide you with optimal care, which includes your follow-up. Under all circumstances we always encourage you to contact your private physician who remains a resource for coordinating your care. When calling for follow-up care, please make the office aware that this follow-up is from your recent emergency room visit. If for any reason you are refused follow-up, please contact the [facility] Emergency Department at and asked to speak to the emergency department charge nurse. [facility] [address] [place] [id number] 1. Please continue to see your primary care provider for your multitude of complaints about her respiratory and anxiety status. These should be managed in a primary care setting for complete care. 2. Continue to take all your prescribed medications as directed. Increase foods that are high in potassium in your diet (Spinach, avocado, banana). 3. Return to the ED as needed and as discussed. - My Orders Last 24 Hours: My Active Orders 10/01/17 10:58 EKG Documentation Completion [RC] STAT Orthostatic Vital Signs [RC] ASDIRECTED - Assessment/Plan Last 24 Hours: My Active Orders 10/01/17 10:58 EKG Documentation Completion [RC] STAT Orthostatic Vital Signs [RC] ASDIRECTED
[2017-10-01 11:53] LABS: CHLORIDE,CL 103 mmol/L (98-107); SODIUM,NA 137 mmol/L (136-145)
== END 2017-10-01 12:26 | disposition home or self-care (01) ==
LOC: MW.ED 10:41
DX: E87.6 Hypokalemia (principal); F41.9 Anxiety disorder, unspecified; I10 Essential (primary) hypertension; E11.9 Type 2 diabetes mellitus without complications; K21.9 Gastro-esophageal reflux disease without esophagitis; Z88.5 Allergy status to narcotic agent; Z88.8 Allergy status to other drugs, medicaments and biological substances; Z79.899 Other long term (current) drug therapy
CPT/HCPCS: 36415; 80053; 84484; 85025; 93005; 96360; 99284; J7040; 99283

== ENCOUNTER 2020-08-23 21:17 | Emergency (ER) | payer BC ==
[2020-08-23] MEDS ORDERED: Diphtheria,Pertussis(Acell),Tetanus Vaccine 0.5 ML Syringe IM ONE (21:55)
[2020-08-23] MEDS ORDERED: Ketorolac 15 MG/ML SDV IM ONE (21:55)
[2020-08-24] MEDS ORDERED: Bacitracin Oint 1 GM U/D Packet TOP ONE (00:22)
--- NOTE | 2020-08-24 00:23 | EDM.PDOC ---
ED HPI GENERAL MEDICAL PROBLEM - General Chief Complaint: Laceration Stated Complaint: FELL DOWN HURT LEG FACE LACERATION LT SIDE Time Seen by Provider: 08/23/20 21:28 - History of Present Illness INITIAL COMMENTS - FREE TEXT/NARRATIVE: CHIEF COMPLAINT(S): Cut to face HISTORY OF PRESENT ILLNESS: This is a 55-year-old woman with a past medical history of diabetes mellitus, asthma, hypertension who comes to the emergency department with a chief complaint of an cut to face. Patient states that she was walking her dog when the dog site cat and the dog pulled on her leash and she fell and hit her face on some glass and her left hand. She denies any head injury or loss of consciousness. She denies any neck pain, back pain, chest pain, shortness of breath. She denies any abdominal pain, nausea or vomiting. She states that her tetanus was approximately 5 to 6 years ago. She denies any headache, blurry vision, diplopia, numbness, tingling, or weakness. She describes the pain on her left cheek as 4 out of 10 and sharp without any radiation of the pain. She has not yet taken any pain medications. Falling exacerbated the pain. REVIEW OF SYSTEMS: Constitutional: Denies fever, chills. Eyes: Denies eye pain Ears, Nose, Mouth, & Throat: Denies earache Cardiovascular: Denies chest pain Respiratory: Denies shortness of breath Gastrointestinal: Denies Nausea, vomiting, diarrhea, hematochezia. Genitourinary: Denies hematuria Skin: Positive for cut to left cheek MSK: Denies joint pain, neck or back pain Neurological: Denies blurred vision, numbness, tingling, weakness Psychiatric: Denies depression PAST MEDICAL HISTORY: As per history of present illness and as reviewed below otherwise noncontributory. SURGICAL HISTORY: As per history of present illness and as reviewed below otherwise noncontributory. SOCIAL HISTORY: As per history of present illness and as reviewed below otherwise noncontributory. FAMILY HISTORY: As per history of present illness and as reviewed below otherwise noncontributory. EXAMINATION OF ORGAN SYSTEMS/BODY AREAS: Constitutional: Blood pressure is 137/70, heart rate 96, respiratory rate 18 with an oxygen saturation 97% on room air. Temperature 36.1 General: Overall well-appearing woman who is in no acute distress Psychiatric: Appropriate mood and affect. Eyes: No scleral icterus or conjunctival erythema pupils are equal round reactive to light. Extraocular movements intact. No vertical or horizontal nystagmus. No signs of entrapment. No proptosis. ENMT: Moist mucous membranes. No pharyngeal erythema uvula was midline. No blood in the oropharynx. No epistaxis. No hemotympanum. Cardiovascular: Regular, rate, and rhythm. No gallops, murmurs, or rubs. Bilateral upper extremity pulses symmetric and intact. No peripheral edema. No JVD. Respiratory: Lungs clear to auscultation bilaterally. No wheezes, rales, or rhonchi. Gastrointestinal: Soft, non-tender, non-distended. Normoactive bowel sounds Genitourinary: No suprapubic tenderness Musculoskeletal: Normal range of motion of all the digits of her left hand. No anatomical snuffbox tenderness. No cervical, thoracic, or lumbar midline spinal tenderness. Skin: 1.5 cm laceration to the patient's left anterior cheek without any active bleeding. This is very superficial. Neurological: Alert, GCS 15 strength and sensation grossly intact in upper and lower extremities bilaterally. MEDICAL DECISION MAKING AND COURSE IN THE ED WITH INTERPRETATION/REVIEW OF DIAGNOSTIC STUDIES: This is a 55-year-old man with a past medical history of diabetes mellitus, asthma, hypertension who comes to the emergency department with laceration to her left cheek and abrasion to her left hand. At this time I do not believe any labs or imaging are indicated. We will provide the patient with Toradol for pain relief and update the patient tetanus. We will clean off the laceration area and prepare for suture repair. Suture repair was significantly delayed secondary to critical patient in the emergency department. Laceration Repair Note Repair of the 1.5 cm left cheek wound was done by myself. Wound was irrigated well with saline. Local anesthesia with lidocaine was performed. No foreign b odies were noted. The wound was repaired with 4 6-0 directed nylon sutures. Wound edges approximated well. Bacitracin ointment and a sterile dressing were applied. I did discuss with patient should be stable for discharge at this time. She is to follow-up within 5 to 7 days for suture removal. She is to return for any new or worsening symptoms. She was amenable to discharge at this time and had no further questions DISPOSITION: The patient was discharged home in stable condition. The patient will follow up with primary care physician or emergency department for suture removal. CONDITION: Fair PROCEDURES: Laceration repair FINAL IMPRESSION(S)/DIAGNOSES: 1. Acute mechanical fall 2. Acute laceration to left cheek status post suture repair 3. Acute left hand abrasion Lul Viramontes M.D. face area Pain Score (Numeric/FACES): 5 - Related Data Allergies Allergy/AdvReac Type Severity Reaction Status Date / Time codeine Allergy Other Verified 08/23/20 21:29 fexofenadine [From Adrienne] Allergy Other Verified 08/23/20 21:29 methylprednisolone Allergy Dizziness Verified 08/23/20 21:29 [From Medrol] Home Meds: Home Meds Budesonide/Formoterol Fumarate [Symbicort 160-4.5 Mcg Inhaler] 1 puff INH DAILY PRN 07/05/17 [History] hydroCHLOROthiazide [Hydrochlorothiazide] 12.5 mg PO DAILY 07/05/17 [History] Albuterol [Proventil HFA] 1 - 2 puff INH Q4H PRN 09/20/17 [History] Lansoprazole 15 mg PO DAILY 09/20/17 [History] Magnesium Oxide [Magnesium] 0.5 tab PO DAILY 09/20/17 [History] Prednisolone, Micronized [Prednisolone] 5 mg PO BID 09/28/17 [History] hydrOXYzine HCL [hydrOXYzine] 25 mg PO Q4HR 10/01/17 [History] Past Medical History HEENT History: Reports: None Cardiovascular History: Reports: Hypertension Respiratory History: Reports: Asthma Gastrointestinal History: Reports: GERD Genitourinary History: Reports: None LICENSED AND CERTIFIED MIDWIFE History: Reports: None Musculoskeletal History: Reports: Arthritis Neurological History: Reports: None Psychiatric History: Reports: None Endocrine/Metabolic History: Reports: Diabetes, Type II Insulin Pump Model and Airport Operations Coordinator: None Hematologic History: Reports: None Immunologic History: Reports: None Oncologic (Cancer) History: Reports: None Dermatologic History: Reports: None - Infectious Disease History Infectious Disease History: Reports: Chicken Pox, Mumps - Past Surgical History Head Surgeries/Procedures: Reports: None HEENT Surgical History: Reports: None Cardiovascular Surgical History: Reports: None Respiratory Surgical History: Reports: None GI Surgical History: Reports: None Female Surgical History: Reports: None Endocrine Surgical History: Reports: None Neurological Surgical History: Reports: None Musculoskeletal Surgical History: Reports: None Oncologic Surgical History: Reports: None Dermatological Surgical History: Reports: None Social & Family History - Family History Family Medical History: No Pertinent Family History - Caffeine Use Caffeine Use: Reports: None - Recreational Drug Use Recreational Drug Use: No ED ROS GENERAL - Review of Systems Review Of Systems: See Below ED EXAM, SKIN/RASH Exam: See Below Course - Vital Signs Last Recorded V/S: Last Vital Signs Temp 36.2 C 08/24/20 00:35 Pulse 83 08/24/20 00:35 Resp 18 08/24/20 00:35 BP 136/73 08/24/20 00:35 Pulse Ox 97 08/24/20 00:35 - Orders/Labs/Meds Meds: Medications Discontinued Medications Generic Name Dose Route Start Last Admin Trade Name Ulises PRN Reason Stop Dose Admin Bacitracin 1 dose 08/24/20 00:22 08/24/20 00:29 Bacitracin Oint 1 Gm U/D Packet TOP 08/24/20 00:23 1 dose ONETIME ONE Administration Diphtheria/Tetanus/Acell Pertussis 0.5 ml 08/23/20 21:55 08/23/20 22:08 Diphtheria,Pertussis(Acell),Tetanus Vaccine 0.5 Ml Syringe IM 08/23/20 21:56 0.5 ml .ONCE ONE Administration Ketorolac Tromethamine 15 mg 08/23/20 21:55 08/23/20 22:08 Ketorolac 15 Mg/Ml Sdv IM 08/23/20 21:56 15 mg ONETIME ONE Administration Lidocaine HCl 5 ml 08/23/20 21:55 08/23/20 22:07 Lidocaine 1% 5 Ml Sdv INJECT 08/23/20 21:56 5 ml ONETIME ONE Administration Departure - Departure Time of Disposition: 00:22 Disposition: Home, Self-Care 01 Condition: Fair Clinical Impression: Laceration - Discharge Information *PRESCRIPTION DRUG MONITORING PROGRAM REVIEWED*: No *COPY OF PRESCRIPTION DRUG MONITORING REPORT IN PATIENT ANICETO: No Instructions: Laceration Care, Adult, Laceration Care, Adult, [id number] Referrals: PCP,None [Primary Care Provider] - Forms: ED Department Discharge Additional Instructions: Your evaluated today on an emergent basis. At this time we did stitched up with a cut to the left side of your face. We did place 4 stitches. These need to be removed within 4 to 7 days. If you have any pus drainage or surrounding redness or fever please return to the emergency department. Please use ice to this area 20 minutes 4 times a day and use Tylenol and Motrin scheduled for the next 48 hours and then use as needed after that. Please use: Tylenol 500-1000mg every 6 hours (DO NOT TAKE MORE THAN 4000mg in 1 day) Ibuprofen 400mg every 6 hours (Take with food as it can cause ulcers, GI upset) Example schedule: 8:00 AM (Tylenol 500-1000mg) 11:00 AM (Ibuprofen 400mg) 2:00 PM (Tylenol 500-1000mg) 5:00 PM (Ibuprofen 400mg) Ice the area 20 minutes 4 times per day [facility] [address] [place] [id number] [place] [id number] The patient is informed of any results of their evaluation and diagnostic workup and all questions are answered. They are given discharge instructions and return precautions. The patient is stable for discharge. The patient states they understand and agree with the plan and that they will return if their symptoms get worse or if they have any new concerns. The following information is given to patients seen in the emergency department who are being discharged to home. This information is to outline your options for follow-up care. We provide all patients seen in our emergency department with a follow-up referral. The need for follow-up, as well as the timing and circumstances, are variable depending upon the specifics of your emergency department visit. If you don't have a primary care physician on staff, we will provide you with a referral. We always advise you to contact your personal physician following an emergency department visit to inform them of the circumstance of the visit and for follow-up with them and/or the need for any referrals to a consulting specialist. The emergency department will also refer you to a specialist when appropriate. This referral assures that you have the opportunity for follow-up care with a s pecialist. All of these measure are taken in an effort to provide you with optimal care, which includes your follow-up. Under all circumstances we always encourage you to contact your private physici an who remains a resource for coordinating your care. When calling for follow-up care, please make the office aware that this follow-up is from your recent emergency room visit. If for any reason you are refused follow-up, please contact the [facility] Emergency Department at and asked to speak to the emergency department charge nurse. Sepsis Event Note (ED) - Evaluation Sepsis Screening Result: No Definite Risk - Focused Exam Vital Signs: Vital Signs Temp Pulse Resp BP Pulse Ox 08/24/20 00:35 36.2 C 83 18 136/73 97 08/23/20 21:29 36.1 C 96 97 H 137/70 97
[2020-08-24 03:02] VITALS: BP 136/73; PULSE 83
== END 2020-08-24 00:35 | disposition home or self-care (01) ==
LOC: MW.ED 21:17
DX: S01.412A Laceration without foreign body of left cheek and temporomandibular area, initial encounter (principal); S60.512A Abrasion of left hand, initial encounter; E11.9 Type 2 diabetes mellitus without complications; J45.909 Unspecified asthma, uncomplicated; I10 Essential (primary) hypertension; K21.9 Gastro-esophageal reflux disease without esophagitis; Z23 Encounter for immunization; Z88.5 Allergy status to narcotic agent; Z88.8 Allergy status to other drugs, medicaments and biological substances; Z79.899 Other long term (current) drug therapy; W25.XXXA Contact with sharp glass, initial encounter; Y93.K1 Activity, walking an animal
CPT/HCPCS: 12011; 90471; 90715; 96372; 99282; J1885

== ENCOUNTER 2023-01-16 14:39 | Emergency (ER) | payer BC ==
[2023-01-16 15:02] VITALS: BP 142/86
[2023-01-16 15:41] LABS: HEMATOCRIT 44.5 % (36.0-46.0); HEMOGLOBIN 15.2 g/dL (12.0-16.0); MEAN CORPUSCULAR HEMOGLOBIN 30.4 pg (27.0-32.0); MEAN CORPUSCULAR HGB CONC 34.2 g/dL (31.0-37.0); WHITE BLOOD CELL COUNT,WBC 7.51 K/uL (4.0-11.0)
[2023-01-16 16:11] LABS: ALBUMIN 4.3 g/dL (3.4-5.0); BILIRUBIN TOTAL 0.5 mg/dL (0.2-1.0); CALCIUM 9.6 mg/dL (8.5-10.1); CARBON DIOXIDE,CO2 30.2 mmol/L (21.0-32.0); CREATININE 0.9 mg/dL (0.6-1.0); EST CRCL DRUG DOSING (CG) 62.8 mL/min; MAGNESIUM 1.7 mg/dL (1.8-2.4); PROTEIN TOTAL,TP 8.6 g/dL (6.4-8.2)
[2023-01-16 16:39] VITALS: PULSE 76
== END 2023-01-16 16:38 | disposition home or self-care (01) ==
LOC: MW.ED 14:39
DX: G62.9 Polyneuropathy, unspecified (principal); R20.2 Paresthesia of skin; M25.511 Pain in right shoulder; I10 Essential (primary) hypertension; J45.909 Unspecified asthma, uncomplicated; K21.9 Gastro-esophageal reflux disease without esophagitis; E11.9 Type 2 diabetes mellitus without complications; Z88.8 Allergy status to other drugs, medicaments and biological substances; Z88.5 Allergy status to narcotic agent; Z79.899 Other long term (current) drug therapy
CPT/HCPCS: 36415; 73030-26-RT; 73030-RT; 80053; 83735; 85027; 99283; 99284